=== PATIENT | female | born 1975 | race Caucasian/White ===

== ENCOUNTER 2016-10-23 11:08 | Observation (INO) | payer BC ==
[~2016-10-23] VITALS: Ht 160 cm; Wt 55.0 kg
[2016-10-23] MEDS ORDERED: ZOLOFT100 MG PO (12:08)
[2016-10-23] MEDS ORDERED: MAXZIDE 37.5 M1 EACH PO (12:09)
[2016-10-23 13:00] LABS: HEMATOCRIT 35.7 % (36.0-46.0); MCH 29.6 PG (29.0-34.0); MCHC 33.6 G/DL (30.0-36.0); MCV 87.9 FL (83-99); MEAN PLAT.VOLUME 10.5 uM^3 (9.5-12.4); PLATELET COUNT 279 K/uL (156-360); RBC DIS.WIDTH-CV 14.4 % (11.8-14.6); RBC DIS.WIDTH-SD 46.1 % (39-53); RED BLOOD COUNT 4.06 M/uL (3.80-5.20); WHITE BLOOD COUNT 5.9 K/uL (4.1-10.2)
[2016-10-23 13:12] LABS: CHLORIDE 103 mEq/L (99-109); POTASSIUM 3.8 mEq/L (3.7-5.4); SODIUM 136 mEq/L (136-147)
[2016-10-23 13:14] LABS: GLUCOSE 103 mg/dL (70-99)
[2016-10-23 13:15] LABS: ANION GAP 9 MEQ/L (2-14)
[2016-10-23 13:18] LABS: GFR ESTIMATE (CALCULATED) > 59 mL/min/
[2016-10-23 13:19] LABS: UREA NITROGEN (BUN) 13 mg/dL (9-23)
[2016-10-23 13:22] LABS: TROP-I INTERPRETATION NEGATIVE; TROPONIN-I < 0.01 ng/mL (0.0-0.30)
[2016-10-23 13:26] LABS: QUANTITATIVE HCG < 4.0 MIU/ML
[2016-10-23] MEDS ORDERED: PROAIR HFA8.5 GM IH (15:18)
[2016-10-23 18:12] VITALS: BP 133/83
[2016-10-23 22:29] LABS: TROP-I INTERPRETATION NEGATIVE; TROPONIN-I 0.02 ng/mL (0.0-0.30)
[2016-10-23 23:12] LABS: ADD MIUA? YES; BILIRUBIN NEGATIVE; BLOOD NEGATIVE; COLOR YELLOW ((YELLOW)); GLUCOSE (STRIP) NEGATIVE; KETONES NEGATIVE; LEUKOCYTES SMALL; NITRITE NEGATIVE; PROTEIN (STRIP) NEGATIVE; UROBILINOGEN 0.2 MG/DL (0.2-1.0)
[2016-10-23 23:35] LABS: CASTS NONE SEEN /LPF; EPITHELIAL CELLS 2+; MUCUS NONE SEEN
[2016-10-23 23:36] LABS: BACTERIA 1+; CRYSTALS NONE SEEN; RED BLOOD CELLS NONE SEEN /HPF (0-5); UCUL ADDED? NO; WHITE BLOOD CELLS 0-5 /HPF (0-5)
[2016-10-24 00:02] LABS: AMPHETAMINES QUANT VALUE 0 NG/ML; BARBITUATES QUANT VALUE 0 NG/ML; BENZODIAZEPINES QUANT VALUE 0 NG/ML; BENZODIAZEPINES, URINE SCREEN Negative (200 ng/mL); MARIJUANA QUANT VALUE 0 NG/ML; OPIATES QUANTITATIVE VALUE 0 NG/ML; PHENCYCLIDINE QUANT VALUE 0 NG/ML
[2016-10-24 04:00] VITALS: BP 114/75
[2016-10-24 06:31] LABS: HDL CHOLESTEROL 64 MG/DL (Desirable>=50); LDL CHOLESTEROL 130 mg/dL (Desirable<100); NON-HDL CHOLESTEROL 147 mg/dL (Desirable<160); TOTAL CHOLESTEROL 211 mg/dL (Desirable<200); TRIGLYCERIDES 86 MG/DL (Normal: <150)
[2016-10-24 07:00] LABS: Estimated Average Glucose 100 mg/dL (70-123); HEMOGLOBIN A1c (GLYCOHEMOGLOB) 5.1 % HGB (Below 5.7)
[2016-10-24 08:35] VITALS: BP 132/73
[2016-10-24 11:59] VITALS: BP 119/76
[2016-10-24] MEDS ORDERED: ASPIR-LOW81 MG PO (13:40)
[2016-10-28 10:33] LABS: DRVVT Mixing Study Interp Not Indicated (()); PROTEIN C FUNCTIONAL ACTIVITY+ 68 % (70-180); PTT-LA 39 sec (<=40); Protein S, Free 116 % normal (50-147); Thrombosis Consult Level Limited (()); dRVVT Screen 37 sec (<=45)
[2016-10-28 11:35] LABS: ANTITHROMBIN III ACTIVITY+ 105 % activi (80-120)
== END 2016-10-24 14:40 | disposition home or self-care (01) ==
LOC: EME 11:08 → EDOF 14:48 → 5WEST 16:57
PROVIDERS: Internal Medicine; Nurse Practitioner Family; Physician Assistant Medical; Specialist
DX: R20.0 Anesthesia of skin (principal); I10 Essential (primary) hypertension; J45.909 Unspecified asthma, uncomplicated; F41.9 Anxiety disorder, unspecified
CPT/HCPCS: 70450; 70551; 80048; 80061; 81003; 81240 90; 83036; 83090 90; 84484; 84702; 85027; 85240 90; 85300 90; 85303 90; 85305 90; 85306 90; 85613 90; 85730 90; 86146 90; 86147 90; 93005; 93880; 99281; 99284; G0378; J1650